=== PATIENT | female | born 1940 | race Caucasian/White ===

== ENCOUNTER → 2023-02-05 | Emergency (ER) | payer OTHER ==
[~2023-02-05] VITALS: Ht 162.6 cm; Wt 49.0 kg
[~2023-02-05] MED LIST: CEFTRIAXONE /D5W 50ML IVPB **ER PYXIS IV ONE; CEFTRIAXONE 1 G in IV DEXTROSE 5% 50 ML IV ONE; HALOPERIDOL LACTATE 5 MG/1 ML VIAL IM ONE; HALOPERIDOL LACTATE 5 MG/1 ML VIAL ONE; IV NORMAL SALINE 500 ML BAG IV ONE; levETIRAcetam 500 MG/5 ML VIAL IV ONE; levETIRAcetam IV 1,000 MG in IV DEXTROSE 5% 100 ML IV ONE
--- NOTE | 2023-02-05 12:35 | NUR ---
Pt out of ER fro Ct scan.
[2023-02-05 12:48] LABS: CARBON DIOXIDE 29 mmol/L (21-32); CHLORIDE 103 mmol/L (98-107); CREATININE 0.9 mg/dL (0.6-1.3); GLUCOSE 131 mg/dL (74-106); POTASSIUM 3.8 mmol/L (3.5-5.1); UREA NITROGEN, BLOOD 15 mg/dL (7-18)
[2023-02-05 12:54] LABS: ALANINE AMINOTRANSFERASE 12 U/L (14-59); ALKALINE PHOSPHATASE 97 U/L (50-136); ASPARTATE AMINOTRANSFERASE 10 U/L (15-37); BILIRUBIN,TOTAL 0.2 mg/dL (0.2-1.0); TOTAL PROTEIN, SERUM 7.2 g/dL (6.4-8.2)
--- NOTE | 2023-02-05 13:02 | NUR ---
Pt back from Ct scan, pt's at the bedside.
[2023-02-05 13:24] LABS: HEMATOCRIT 24.9 % (31.2-41.9); MEAN CORPUSCULAR HEMOGLOBIN 30.3 uug (24.7-32.8); MEAN CORPUSCULAR VOLUME 92.6 fL (75.5-95.3); PLATELET COUNT (AUTO) 532 K/uL (179-408)
--- NOTE | 2023-02-05 13:35 | NUR ---
Marlon lowe in [facility] - 02/05/[address] Browning placed a call to Dr Contreras for Tae consult.
--- NOTE | 2023-02-05 14:00 | NUR ---
[facility] notified for pt's admit.
--- NOTE | 2023-02-05 14:45 | NUR ---
SYEDA VILLANUEVA spoke to [facility] for tx. Awaiting urine result and bed avail from [facility].
--- NOTE | 2023-02-05 16:00 | NUR ---
Pt becomes agitatedon/off and when touched. staying at the bedside, safety measure in place.
--- NOTE | 2023-02-05 16:28 | NUR ---
Patient is resting comfortably in bed with eyes closed. No acute distress noted.
[2023-02-05 17:33] LABS: *BILIRUBIN,URIN NEGATIVE (NEGATIVE); *CLARITY,URINE CLEAR (CLEAR); *COLOR,URINE LIGHT YELLOW (YELLOW); *KETONES,URINE NEGATIVE (NEGATIVE); *UROBILINOGEN,URINE 0.2 E.U./dl (NORMAL); LEUKOCYTE ESTERASE ,URINE NEGATIVE (NEGATIVE); NITRITE, URINE NEGATIVE (NEGATIVE); PH,URINE 7.5 (5.0-8.0); UGLUCOSE NEGATIVE (NEGATIVE)
--- NOTE | 2023-02-05 17:34 | NUR ---
Pt's signed consent for transfer.
[2023-02-05 18:02] LABS: *BLOOD, URINE NEGATIVE (NEGATIVE)
--- NOTE | 2023-02-05 19:55 | NUR ---
Patient sleeping comfortably in bed with eyes closed, no signs of distress noted.
--- NOTE | 2023-02-05 19:55 | NUR ---
Marlon lowe in [facility] - 02/05/23 at 2134 by VISHAL Patient resting comfortably in bed, eyes closed no signs noted.
--- NOTE | 2023-02-05 20:15 | NUR ---
Called [facility], chano Maciel at [facility] doctor has been paged and waiting for [id number] call back. Possible transfer to [facility].
--- NOTE | 2023-02-05 22:41 | NUR ---
Patient incontinent in brief, had one large yellow void.
--- NOTE | 2023-02-05 23:31 | NUR ---
[facility] to [facility] room [address] Laura ETA mushroom picker time 00:30 by [facility]. Calling for report at
--- NOTE | 2023-02-05 23:43 | NUR ---
Report given to Jerrica PRUITT at [facility].
--- NOTE | 2023-02-05 23:47 | NUR ---
Called Emerson (patient's son) and left a voicemail to notify patient's transfer to [facility].
--- NOTE | 2023-02-06 00:10 | NUR ---
Patient was incontinent in brief, had one large void.
--- NOTE | 2023-02-06 00:18 | NUR ---
Patient picked up by [facility] ambulance unit [id number] to transfer patient to [facility] via [facility] with personal belongings. Patient in stable condition, no signs of distress noted. Addendum: 02/06/23 at 0035 by VISHAL Clinical data printed and CD given to silk conditioner
== END | disposition home or self-care (01) ==
LOC: ER 12:07
DX: R41.82 Altered mental status, unspecified (principal); E78.5 Hyperlipidemia, unspecified; R07.89 Other chest pain; Z88.0 Allergy status to penicillin; Z88.1 Allergy status to other antibiotic agents; Z88.8 Allergy status to other drugs, medicaments and biological substances; Z20.822 Contact with and (suspected) exposure to COVID-19
CPT/HCPCS: 99285; 70450; 96365; 71045; 96361; 96367; 87426; 80053; 81003; 85025; 87040 ×2; 84484; 36415; 93005; 72170; 72125; 96372; 83605; J0696; J1630; J1953 ×2; J7040 ×2; A4663; C1758